=== PATIENT | female | born 1960 | race Caucasian/White ===

== ENCOUNTER 2024-11-25 09:05 | Outpatient (AMB) | payer BC, SELFPAY ==
--- NOTE | 2024-11-25 09:08 | MHC.PC.OV ---
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 Intake Note: New patient visit Cctv Technician Required: No Allergies No Known Allergies Allergy (Verified 11/25/24 09:20) Medication List - Last Reconciled 11/25/24 by Matilda Castañeda PA-C citalopram 20 mg PO DAILY Tobacco use date assessed: 11/25/24 Fall risk assessment: No Falls in past year Dental Screening Dental Screen Date: 11/25/24 Did you have a dental visit in the last 12 months?: Yes Did you have a dental problem in the last 6 months where you did not have access to dental care?: No Was dental information given to patient?: 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 She is transferring from [facility]. She was last seen by myself about a year and a half ago. She has a significant past medical history of osteopenia, left-sided breast cancer s/p lumpectomy 2004, hypertension, anxiety and depression. CV: Blood pressure today in the office is 124/84. She is on triamterene/hydrochlorothiazide 37.5/25 mg daily for leg swelling (started by previous pcp denies issues with bp). She has been off of this medication for a few weeks and states that she does not really notice any leg swelling. She has recently retired and thinks the swelling has improved from changing lifestyle. Cholesterol has been diet controlled. Psych: In 2023 her was diagnosed with esophageal cancer and is doing well. She is on citalopram 20 mg daily. She has been on this for quite some time and overall feels well. Mammo: Up-to-date at [facility] SUPERVISOR MARBLE: Up-to-date at [facility], s/p hysterectomy Bone density: 2021-osteopenia Colonoscopy: 2019- due in 2029 [facility] Surgical History (Updated 11/25/24 @ 08:48 by Shirin Perez CMA) H/O lumpectomy Hx of colonoscopy H/O: hysterectomy Social History Housing: House Patient Tobacco Use Status: Current someday Tobacco user (one pack on the weekends) Cigarettes Per Day: 3 Years Smoked: 40 e-Cigarette/Vaping Use: Never Used service: No Current occupational status: employed and retired Cognitive needs: No Hearing needs: No Vision needs: No Questionnaire PHQ-9 Over the last 2 weeks, how often have you been bothered by any of the following problems? 1. Little interest or pleasure in doing things: not at all 2. Feeling down, depressed, or hopeless: not at all 3. Trouble falling or staying asleep, or sleeping too much: not at all 4. Feeling tired or having little energy: not at all 5. Poor appetite or overeating: not at all 6. Feeling bad about yourself - or that you are a failure or have let yourself or your family down: not at all 7. Trouble concentrating on things, such as reading the newspaper or watching television: not at all 8. Moving or speaking so slowly that other people could have noticed. Or the opposite - being so fidgety or restless that you have been moving around a lot more than usual: not at all 9. Thoughts that you would be better off or of hurting yourself in some way: not at all Total score: 0 Depression Screening Interpretation: Negative Depression Screening Done: Yes 13765 - PHQ-9 Billing: Yes Source: Developed by Drs. Brody Miranda, Jodie Matta, Socrates Hamm and colleagues, with an educational renee from [employer]. Thrive Questionnaire I am a: Patient What is your living situation today?: I have a steady place to live Within the past 12 months, did the food you bought not last and you didn't have the money to get more?: Never true Within the past 12 months, did you worry whether your food would run out before you got money to buy more?: Never true Do you have trouble paying for medicines?: No Do you have trouble getting transportation to medical appointments?: No Do you have trouble paying your heating and electricity bill?: No Do you have trouble taking care of your child, family member or friend?: No Do you have trouble with day-to-day activities such as bathing, preparing meals, shopping, managing finances, etc.?: No Are you currently unemployed and looking for a job?: No Are you interested in more education?: No Please select the resources that you would like help with: None Currently or been in a relationship where the following occur: No concerns reported THRIVE Score: 0 AUDIT C Alcohol Use Questionnaire (AUDIT-C) 1. How often do you have a drink containing alcohol?: 2-3 times a week 2. How many drinks containing alcohol do you have on a typical day when you are drinking?: 1 or 2 3. How often do you have six or more drinks on one occasion?: Monthly Total Score: 5 CLIFTON-7 AMB Questionnaire CLIFTON-7 Feeling nervous, anxious, or on edge: 0 = Not at all Not being able to stop or control worryin = Not at all Worrying too much about different things: 0 = Not at all Trouble relaxin = Not at all Being so restless that it is hard to sit still: 0 = Not at all Becoming easily annoyed or irritable: 0 = Not at all Feeling afraid as if something awful might happen: 0 = Not at all Total CLIFTON-7 score (0-4 normal; 5-9 mild; 10-14 moderate; 15-21 severe): 0 Source: Developed by Drs. Brody Miranda, Jodie Matta, Socrates Hamm and colleagues, with an educational renee from [employer]. CLIFTON-7 Assessment Billing CLIFTON-7 Assessment Tool: CLIFTON-7 Assessment 54046 Physical exam (Primary Care) Vital Signs: Last Vital Signs Temp 97.9 F 11/25/24 09:11 Pulse 86 11/25/24 09:11 Resp 12 11/25/24 09:11 BP 124/84 11/25/24 09:11 Pulse Ox 94 11/25/24 09:11 Oxygen Delivery Method Room Air 11/25/24 09:11 BMI result Body Mass Index 28.3 Tobacco/Smoking Status: Tobacco use Status Tobacco use date assessed 11/25/24 11/25/24 09:16 Patient Tobacco Use Status Current someday Tobacco (one 11/25/24 09:16 pack on the weekends) e-Cigarette/Vaping Use Never Used 11/25/24 09:16 PHQ-9: PHQ-9 Score PHQ-9: Total score 0 11/25/24 09:16 Depression Screening Interpretation: Negative Currently or been in a relationship where the following occur: No concerns reported Const Orientation/consciousness: patient oriented x3 HENMT Ears: hearing grossly normal bilaterally and TM's normal bilaterally General nose exam: No nasal polyps present Face and sinus: Yes sinuses nontender Mouth: Normal oral and palatal mucosa present Eyes Pupils: Equal, round and reactive pupils present EOM: EOMs intact bilaterally Neck Neck: Yes full ROM and Yes no lymphadenopathy Thyroid: Thyroid normal Chest Chest palpation & inspection: normal inspection of the chest Resp Auscultation: clear to auscultation bilaterally Cardio Rate: regular rate Rhythm: regular rhythm Heart sounds: S1 normal heart sound present and S2 normal heart sound present Peripheral pulses: Peripheral pulses 2+ throughout GI Other: Soft, nontender Auscultation: normal bowel sounds Rectal Exam - Female: deferred General: Yes no CVA tenderness Back/Spine/Pelvis Other: Nontender Back: no CVA tenderness Skin General skin exam: no rashes or lesions noted Neuro General: patient oriented x3, gait normal, CN's II-XI intact bilaterally and deep tendon reflexes 2+ bilaterally Cranial nerves: Yes Equal, round and reactive pupils present Motor exam (neuro): 5/5 motor strength present throughout Sensory Exam: double simultaneous stimulation for sensation normal Coordination: mnqimt-ay-yxzy test normal and Romberg test negative Extrem General: Yes normal to inspection and Yes full ROM Psych Affect: normal affect Attitude: cooperative Thought process: Normal thought process present Thought content: Normal thought content present Insight: Good insight present (Psych) Judgement: Good judgement present (Psych) Coding Level of Care Code Est Pt Prev Care >65y(07338) Diagnoses Routine general medical examination at a health care facility Z00.00 Osteopenia M85.80 Generalized anxiety disorder F41.1 Major depressive disorder, recurrent, mild F33.0 HTN (hypertension) I10 Additional Codes CLIFTON-7 Assessment Billing - CLIFTON-7 Assessment Tool: CLIFTON-7 Assessment 05998 ([id number]) PHQ-9 - 09541 - PHQ-9 Billing: Yes ([id number]) Assessment & Plan Assessment & Plan (1) Routine general medical examination at a health care facility: Code(s): Z00.00 - Encounter for general adult medical examination without abnormal findings Plan: Health maintenance reviewed Labs ordered (2) Osteopenia: Code(s): M85.80 - Other specified disorders of bone density and structure, unspecified site Category: Medical Plan: We will monitor (3) Generalized anxiety disorder: Code(s): F41.1 - Generalized anxiety disorder Category: Medical Plan: currently very well controlled (4) Major depressive disorder, recurrent, mild: Code(s): F33.0 - Major depressive disorder, recurrent, mild Category: Medical Plan: as above (5) HTN (hypertension): Code(s): I10 - Essential (primary) hypertension Category: Medical Plan: BP reassuring. We will recheck in 6 months. She will monitor at home. She has only recently been off of the medication and tells me that she was only on this ever for like swelling. We will use Lasix as needed. Orders: Orders Comprehensive [place]. Panel Fast Today F33.0 - Major depressive disorder, recurrent, mild, F41.1 - Generalized anxiety disorder, I10 - Essential (primary) hypertension, M85.80 - Other specified disorders of bone density and structure, unspecified site, Z01.89 - Encounter for other specified special examinations Complete Blood Count Auto Diff Today F33.0 - Major depressive disorder, recurrent, mild, F41.1 - Generalized anxiety disorder, I10 - Essential (primary) hypertension, M85.80 - Other specified disorders of bone density and structure, unspecified site, Z01.89 - Encounter for other specified special examinations Lipid Panel Today F33.0 - Major depressive disorder, recurrent, mild, F41.1 - Generalized anxiety disorder, I10 - Essential (primary) hypertension, M85.80 - Other specified disorders of bone density and structure, unspecified site, Z01.89 - Encounter for other specified special examinations TSH reflex Free T4 Today F33.0 - Major depressive disorder, recurrent, mild, F41.1 - Generalized anxiety disorder, I10 - Essential (primary) hypertension, M85.80 - Other specified disorders of bone density and structure, unspecified site, Z01.89 - Encounter for other specified special examinations UA CC w/rflx Micro + Cult Today F33.0 - Major depressive disorder, recurrent, mild, F41.1 - Generalized anxiety disorder, I10 - Essential (primary) hypertension, M85.80 - Other specified disorders of bone density and structure, unspecified site, Z01.89 - Encounter for other specified special examinations, Z13.220 - Encounter for screening for lipoid disorders Vitamin D 25-OH Total Today F33.0 - Major depressive disorder, recurrent, mild, F41.1 - Generalized anxiety disorder, I10 - Essential (primary) hypertension, M85.80 - Other specified disorders of bone density and structure, unspecified site, Z01.89 - Encounter for other specified special examinations MM screening mammo BI Today Z12.31 - Encounter for screening mammogram for malignant neoplasm of breast Microalbumin, Random (w Creat) Today F33.0 - Major depressive disorder, recurrent, mild, F41.1 - Generalized anxiety disorder, I10 - Essential (primary) hypertension, M85.80 - Other specified disorders of bone density and structure, unspecified site, Z01.89 - Encounter for other specified special examinations Medications: New furosemide (Lasix) 20 mg PO QAM 90 tabs 1RF citalopram 20 mg PO DAILY 90 tabs 3RF
[2024-11-25 09:11] VITALS: BP 124/84; PULSE 86; RESP 12; TEMP 36.6; O2SAT 94; BMI 28.3
--- OUTSIDE RECORDS SUMMARY | 2024-11-25 09:21 | XMS_ITS | Clinical Summary ---
Author Organization [facility] it Address [address] [place] [address] Care Team Providers Care Drawing Instructor Name Role Phone Tierra Obregon MD Primary Care Provider Social History Tobacco Use Types Packs/Day Years Used Date Smoking Tobacco: Every Day Cigarettes Smokeless Tobacco: Never Alcohol Use Standard Drinks/Week Comments Yes 2 (1 standard drink = 0.6 oz pur e alcohol) Comments Unknown Sex and Gender Information Value Date Recorded Sex Assigned at Not on file Legal Sex Female 2:09 AM EST Gender Identity Not on file Sexual Orientation Not on file Obstetrics History Last Filed Vital Signs Vital Sign Reading Time Taken Comments Blood Pressure - - Pulse - - Temperature - - Respiratory Rate - - Oxygen Saturation - - Inhaled Oxygen Concentration - - Weight 68 kg (150 lb) 09/18/2023 1:44 PM EDT Height 162.6 cm (5' 4 ) 09/18/2023 1:44 PM EDT Body Mass Index 25.75 09/18/2023 1:44 PM EDT Plan of Treatment Health Maintenance Due Date Last Done Comments DTaP,Tdap,and Td Vaccines (1 - Tdap) 1977 Pneumococcal Vaccine: 50+ Ye ars (1 of 2 - PCV) 1977 Zoster Vaccines (1 of 2) 2008 Colorectal Cancer Screening: Colonoscopy 04/15/2022 Depression Screening 04/15/2022 Hepatitis C Screening 04/15/2022 Social Influencers of Health Screening 04/15/2022 Breast Cancer Screening 09/14/2022 09/14/2020 Falls Risk Assessment 10/30/2023 COVID-19 Vaccine ( - 2023-2 5 season) 2024 Influenza Vaccine (#1) 2025 Osteoporosis Screening (Bone Density Screening) 07/21/2029 07/22/2019 RSV Immunization Adult Patie nts (1 - 1-dose 75+ series) 2033 HIB Vaccines Aged Out No longer eligi ble based on patient's age to complete this topic HPV Vaccines Aged Out No longer eligi ble based on patient's age to complete this topic Hepatitis A Vaccines Aged Out No long er eligible based on patient's age to complete this topic Hepatitis B Vaccines Aged Out No long er eligible based on patient's age to complete this topic IPV Vaccines Aged Out No longer eligi ble based on patient's age to complete this topic MMR Vaccines Aged Out No longer eligi ble based on patient's age to complete this topic Meningococcal ACWY Vaccine Aged Out N o longer eligible based on patient's age to complete this topic Meningococcal B Vaccine Aged Out No l onger eligible based on patient's age to complete this topic RSV Immunization Patients Un maryuri 20 months Aged Out No longer eligible b ased on patient's age to complete this topic Varicella Vaccines Aged Out No longer eligible based on patient's age to complete this topic Procedures Procedure Name Priority Date/Time Associated Diagnosis Comments [facility] SCREENING DIGITAL Routine 09/14/2020 4:29 PM EDT Encounter for screening mammogram for malignant neoplasm of breast [facility] DEXA AXIAL SKELETON Routine 07/22/2019 2:56 PM EDT Other specified disorders of bone density and structure, other site from Last 3 Months or Most Recently Relevant to Health Maintenance Results * [facility] SCREENING DIGITAL (09/14/2020 4:29 PM EDT) Anatomical Region Laterality Modality Mammography 09/14/2020 3:12 PM EDT Narrative 09/14/2020 4:29 PM EDT [facility] Diagnostic Imaging Department [address] [place] [address] Patient: MAUREEN PENN/Age/Sex: 1960 - 59 - F Unit#: [id number] Location/Status: SPDIMAM/REG CLI Mnemonic/Ordering Site: [facility] Ordering Physician: TIERRA OBREGON MD Kaci Screening Digital - 09/14/20 - 1537 INDICATION: SCREENING COMPARISON: [facility] mammograms dating back to 05/09/2012 TECHNIQUE: CC and MLO views of the breasts were obtained, using full field digital mammography with 3D tomosynthesis views in the MLO projection. XCCL view of the left breast was obtained. 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 Personal history of left breast carcinoma diagnosed at age 43 and treated with lumpectomy and radiation FINDINGS: The breasts contain scattered fibroglandular tissues. Asymmetry and architectural distortion at the left breast lumpectomy site is stable compared with multiple prior exams. Metallic tissue marker is visualized within the medial right breast. No suspicious masses or suspicious microcalcifications are identified. Compared to the prior exam, no adverse interval change. IMPRESSION: No specific mammographic evidence of breast malignancy. Lack of an imaging correlate should not deter or delay biopsy of a clinically significant palpable finding. BI-RADS - Category 2 - Benign finding 3342F, 7025F Annual screening mammography is recommended. Patient entered into a reminder system with a target date for the next mammogram. ([id number] / [id number]) , [id number] Dictating Physician: RYAN BENAVIDES MD Electronically Signed by: RYAN BENAVIDES MD Dic Date/Time: 09/14/201623 Sign date/Time: 09/14/201628 Procedure Note Ryan Benavides MD - 05/01/2022 [facility] Diagnostic Imaging Department [address] [place] [address] Patient: MAUREEN PENN Anne-Marie /Age/Sex: 1960 - 59 - F Unit#: [id number] Location/Status: SPDIMAM/REG CLI Mnemonic/Ordering Site: [facility] Ordering Physician: TIERRA OBREGON MD Kaci Screening Digital - 09/14/201536 INDICATION: SCREENING COMPARISON: [facility] mammograms dating back to 05/09/2012 TECHNIQUE: CC and MLO views of the breasts were obtained, using full field digital mammography with 3D tomosynthesis views in the MLO projection. XCCL viewof the left breast was obtained. 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 Personal history of left breast carcinoma diagnosed at age 43 and treatedwith lumpectomy and radiation FINDINGS: The breasts contain scattered fibroglandular tissues. Asymmetry and architectural distortion at the left breast lumpectomy site is stablecompared with multiple prior exams. Metallic tissue marker is visualized withinthe medial right breast. No suspicious masses or suspicious microcalcifications are identified. Compared to the prior exam, no adverse interval change. IMPRESSION: No specific mammographic evidence of breast malignancy. Lack of an imaging correlate should not deter or delay biopsy of aclinically significant palpable finding. BI-RADS - Category 2 - Benign finding 3342F, 7025F Annual screening mammography is recommended. Patient entered into a reminder system with a target date for the next mammogram. ([id number] / [id number]) , [id number] Dictating Physician: RYAN BENAVIDES MD Electronically Signed by: RYAN BENAVIDES MD Dic Date/Time: 09/14/20 1624 Sign date/Time: 09/14/20 1629 us Tierra Obregon MD IMG BI PROCEDURES Final Res ult * [facility] DEXA AXIAL SKELETON (07/22/2019 2:56 PM EDT) Anatomical Region Laterality Modality Mammography 07/22/2019 1:59 PM EDT Narrative 07/22/2019 2:56 PM EDT [facility] Diagnostic Imaging Department [address] [place] [address] Patient: FILIMAUREEN Anne-Marie /Age/Sex: 1960 - 58 - F Unit#: [id number] Location/Status: SPDIMA/REG CLI [facility] Ordering Physician: TIERRA OBREGON MD [facility] Dexa Axial Skeleton - 07/22/19 - 7369 HISTORY: The patient is a 58-year-old postmenopausal female with clinical concern for metabolic bone disease. FINDINGS: Dual energy x-ray absorptiometry of the lumbar spine and femurs is performed. The mean bone mineral density at L1-L4 is 1.327 gm/cm2 which is 112% of that of young normals and 124% of that of age matched controls. This yields a T-score of 1.2 and a Z-score of 2.2 and there is therefore no evidence of osteoporosis or osteopenia here. The mean bone mineral density of the femurs bilaterally is 0.853 gm/cm2 which is 85% of that of young normals and 93% of that of age matched controls. This yields a T-score of -1.2 and a Z-score of -0.5 which is diagnostic of osteopenia. IMPRESSION: 1. Osteopenia. 2. FRAX analysis yields a 10-year probability of major osteoporotic fracture of 7.9% and a 10-year probability of hip fracture of 1.1%. Code 38713 Dictating Physician: NIKKI TATUM MD Electronically Signed by: NIKKI TATUM MD Dic Date/Time: 07/22/191453 Sign date/Time: 07/22/191455 Procedure Note Nikki Tatum - 05/01/2022 [facility] Diagnostic Imaging Department [address] [place] [address] Patient: MAUREEN PENN Anne-Marie /Age/Sex: 1960 - 58 - F Unit#: [id number] Location/Status: [facility] Mnemonic/Ordering Site: [facility] Ordering Physician: TIERRA OBREGON MD [facility] Dexa Axial Skeleton - 07/22/191423 HISTORY: The patient is a 58-year-old postmenopausal female withclinical concern for metabolic bone disease. FINDINGS: Dual energy x-ray absorptiometry of the lumbar spine and femursis performed. The mean bone mineral density at L1-L4 is 1.327 gm/cm2 which is112% of that of young normals and 124% of that of age matched controls. Thisyields a T-score of 1.2 and a Z-score of 2.2 and there is therefore no evidenceof osteoporosis or osteopenia here. The mean bone mineral density of the femurs bilaterally is 0.853 gm/jc4vijis is 85% of that of young normals and 93% of that of age matched controls.This yields a T-score of -1.2 and a Z-score of -0.5 which is diagnostic of osteopenia. IMPRESSION: 1. Osteopenia. 2. FRAX analysis yields a 10-year probability of major osteoporoticfracture of 7.9% and a 10-year probability of hip fracture of 1.1%. Code 07720 Dictating Physician: NIKKI TATUM MD Electronically Signed by: NIKKI TATUM MD Dic Date/Time: 07/22/19 1454 Sign date/Time: 07/22/19 145 Tierra Obregon MD IMG BI PROCEDURES Final Res ult from Last 3 Months or Most Recently Relevant to Health Maintenance Care Teams Drawing Instructor Relationship Specialty Start Date End Date Tierra Obregon MD [address] [facility] [address] [place] [id number] PCP - General 05/25/10
== END 2024-11-25 09:43 | disposition home or self-care (01) ==
LOC: HO.HMCFM 09:05
PROVIDERS: PCP Physician Assistant; Visit Provider Physician Assistant
DX: Z00.00 Encounter for general adult medical examination without abnormal findings (principal); M85.80 Other specified disorders of bone density and structure, unspecified site; F41.1 Generalized anxiety disorder; F33.0 Major depressive disorder, recurrent, mild; I10 Essential (primary) hypertension

== ENCOUNTER → 2024-11-25 09:05 | Outpatient (BNVA) | payer BC, SELFPAY | PROVIDERS: PCP Physician Assistant; Visit Provider Physician Assistant | DX: Z00.00 Encounter for general adult medical examination without abnormal findings (principal); I10 Essential (primary) hypertension; M85.80 Other specified disorders of bone density and structure, unspecified site; F41.1 Generalized anxiety disorder; F33.0 Major depressive disorder, recurrent, mild; Z85.3 Personal history of malignant neoplasm of breast | CPT/HCPCS: 96127 ==

== ENCOUNTER 2024-11-27 07:25 | Outpatient (REF) | payer BC, SELFPAY ==
[2024-11-27 10:05] LABS: MANUAL DIFF FLAG NO
[2024-11-27 10:10] LABS: Appearance Urine Clear; Glucose Urine UA Negative (Negative); PH 6.5 (5.0-9.0); Specific Gravity - Urine 1.010 (1.005-1.025); UMIC TRIGGER UACC YES
[2024-11-27 10:21] LABS: Hematocrit 39.6 % (37.0-47.0); Hemoglobin 13.5 g/dl (12.0-16.0); Imm Gran Abs Auto 0.02 X10*3/uL (0.00-0.03); Imm Gran Pct Auto 0.4 % (0.0-0.4); Lymphocytes Absolute Auto 1.5 X10*3/uL (1.2-4.9); Mean Corpuscular HGB Conc 34.1 g/dl (31.0-35.0); Mean Corpuscular Hemoglobin 32.2 pg (27.0-33.0); Mean Corpuscular Volume 94.5 fL (80.0-98.0); NRBC Abs Auto 0.000 X10*3/uL (0.0-0.012); NRBC Pct Auto 0.0 /100WBC (0.0-0.2); Platelet Count 206 X10*3/uL (160-400); Red Blood Count 4.19 X10*6/uL (4.20-5.50); White Blood Count 5.1 X10*3/uL (4.8-10.8)
[2024-11-27 10:56] LABS: Alanine Aminotransferase 25 U/L (0-31); Albumin Level 4.3 g/dL (3.5-5.0); Alkaline Phosphatase 61 U/L (39-117); Anion Gap 12 (12-20); Aspartate Amino Transferase 31 U/L (5-31); Blood Urea Nitrogen 18 mg/dL (9-16); Calcium 8.8 mg/dL (8.4-10.2); Carbon Dioxide 27 mmol/L (22-29); Chloride 109 mmol/L (96-108); Cholesterol 216 mg/dL (<200); Estimated Glomerular Filt Rate > 60; HDL Cholesterol 83 mg/dL (>40); Potassium 3.8 mmol/L (3.3-5.1); Sodium 144 mmol/L (135-145); Total Protein 6.4 g/dL (6.5-8.0); Triglycerides 67 mg/dL (<150)
== END 2024-11-27 07:26 | disposition home or self-care (01) ==
LOC: HO.HMGCLDS 07:25
PROVIDERS: PCP Physician Assistant; Visit Provider Physician Assistant
DX: Z01.89 Encounter for other specified special examinations (principal); Z13.220 Encounter for screening for lipoid disorders; F41.1 Generalized anxiety disorder; F33.0 Major depressive disorder, recurrent, mild; I10 Essential (primary) hypertension; M85.80 Other specified disorders of bone density and structure, unspecified site
CPT/HCPCS: 36415; 80053; 80061; 81001; 82043; 82306; 82570; 84443; 85025